=== PATIENT | female | born 2000 | race Caucasian/White ===

== ENCOUNTER 2020-06-21 13:50 | Outpatient (AMBR) | payer BC, OTHER, SELFPAY ==
--- NOTE | 2020-06-13 13:54 | PT.ODAYNRPT ---
PT Outpatient Daily Note Date of Service: 06/13/20 OP Daily Note Visit Reasons: shoulder pain Outpatient Physical Therapy Treatment Date: 06/13/20 Subjective: Pt's shoulder pop earlier and was painful. Pt stated that she continues to have shoulder pain with all activities Objective: Please se flow chart for list of ther ex performed Assessment: tolerate exercises; pain with all exercises revert to isometric exercises with good tolerance Plan: Continue with PT Length of Time (minutes) of Treatment: 30 Minutes Office Procedures PT Procedures PT Date of Service: 06/13/20 Therapeutic Exercise 30 minutes: Yes
--- NOTE | 2020-06-15 13:54 | PT.ODAYNRPT ---
PT Outpatient Daily Note Date of Service: 06/15/20 OP Daily Note Visit Reasons: shoulder pain Outpatient Physical Therapy Treatment Date: 06/15/20 Subjective: Pt's shoulder the same. Pt unable to try the ball pit around yesterday with the kids. Pt is noticing more bicep pain lately Objective: Please see flow chart for list of ther ex performed Assessment: tolerate exercises with minimal pain Plan: Continue with PT Length of Time (minutes) of Treatment: 30 Minutes Office Procedures PT Procedures PT Date of Service: 06/13/20 Therapeutic Exercise 30 minutes: Yes PT Procedures PT Date of Service: 06/15/20 Therapeutic Exercise 30 minutes: Yes
--- NOTE | 2020-06-21 14:06 | PT.ODS1RPT ---
PT OP Progress/Discharge Note Date of Service: 06/21/20 Progress Note/DC Note Progress Note/Discharge Note: DC Note Patient Information Visit Reasons: shoulder pain Medical Diagnosis: M25.511 Treatment Dx #1: Right Shoulder Mobility Deficits Treatment Dx #2: Right Shoulder Weakness Service Continue Service or Discharge: Discharge Discharge Date: 06/21/20 Status Subjective: Pt stated that her shoulder pain (8/10) is feeling worse. Pt mention that it's going down her elbow and continues to pop and lock past shoulder height. Pt saw her provider today and she is planning to get a MRI. Pt continues to have limitation with overhead motions, lifting, chores, cooking, cleaning, and self care, and performing recreational activities. Objective: Right Shoulder AROM Flexion: 120 deg with pain Abduction: 120 deg with pain External Rotation: 60 deg with pain Internal Rotation: 50 deg with pain Right PROM: all motions are WFL with end range pain in all plane Right Shoulder MMTs: grossly 3-/5 Right Scapula MMTs: grossly 3-/5 Special Test (+) grind test (+) yergason's (+) speed Palpation: TTP long head of biceps Assessment: Pt demonstrate limited right shoulder AROM and decrease strength with continue pain leading to difficulty with ADLs. Pt will no longer benefit from physical therapy due to minimal progression towards goals. Pt was instructed on HEP last session to continue at home to maintain ROM and strength. Pt performed all exercises safely, thank you for your referrals. Plan: D/C home with HEP and follow up with provider Office Procedures PT Procedures PT Date of Service: 06/13/20 Therapeutic Exercise 30 minutes: Yes PT Procedures PT Date of Service: 06/15/20 Therapeutic Exercise 30 minutes: Yes PT Procedures PT Date of Service: 06/21/20 Therapeutic Exercise 30 minutes: Yes
== END 2020-07-11 23:59 | disposition home or self-care (01) ==
PROVIDERS: PCP Family Medicine; Referring Provider Family Medicine; Visit Provider Family Medicine
DX: M25.511 Pain in right shoulder (principal); R53.1 Weakness; G89.29 Other chronic pain
CPT/HCPCS: 97110

== ENCOUNTER → 2024-10-02 | Outpatient (CLI) | payer MEDICAID, SELFPAY ==
--- NOTE | 2024-10-02 15:23 | XR_ITS ---
Examination: Right hand 2 views Technique one AP lateral right hand 2 views Exam date and time: October 02, 2024 1603 hours INDICATIONS: Right hand injury 5 days ago. FINDINGS: Comminuted fractures ungual tuft tip distal phalanx third digit No dislocation IMPRESSION: Displaced comminuted fractures ungual tuft tip distal phalanx third digit
== END | disposition home or self-care (01) ==
PROVIDERS: PCP Nurse Practitioner; Referring Provider Nurse Practitioner; Visit Provider Nurse Practitioner
DX: M79.641 Pain in right hand (principal); S62.602A Fracture of unspecified phalanx of right middle finger, initial encounter for closed fracture; X58.XXXA Exposure to other specified factors, initial encounter
CPT/HCPCS: 73120

== ENCOUNTER → 2024-10-16 | Outpatient (CLI) | payer MEDICAID, SELFPAY ==
--- NOTE | 2024-10-16 09:53 | XR_ITS ---
Examination: Hand, right 3 views Technique: Hand AP, oblique, lateral 3 views Date and time of exam: October 16, 2024 1015 hours INDICATIONS: Injury to the hand 3 weeks ago with third digit pain FINDINGS: Acute comminuted fractures ungual tuft tip distal phalanx third digit with mild separation of the fracture fragments, stable alignment compared with October 02, 2024 IMPRESSION: Stable alignment comminuted fractures ungual tuft tip distal phalanx third digit compared with October 02, 2024
== END | disposition home or self-care (01) ==
PROVIDERS: PCP Nurse Practitioner Gerontology; Referring Provider Nurse Practitioner Gerontology; Visit Provider Nurse Practitioner Gerontology
DX: S62.632A Displaced fracture of distal phalanx of right middle finger, initial encounter for closed fracture (principal); X58.XXXA Exposure to other specified factors, initial encounter
CPT/HCPCS: 73130

== ENCOUNTER → 2024-12-17 | Outpatient (CLI) | payer OTHER, SELFPAY | END | disposition home or self-care (01) | PROVIDERS: PCP Nurse Practitioner; Referring Provider Psychiatry & Neurology Neurology; Visit Provider Psychiatry & Neurology Neurology | DX: G40.89 Other seizures (principal) | CPT/HCPCS: 95816 ==